=== PATIENT | male | born 1945 | race Caucasian/White ===

== ENCOUNTER 2022-01-30 15:01 | Emergency (ER) | payer MEDICARE ==
[~2022-01-30 15:01] MED LIST: Iopamidol 370 76% 100 ML VIAL ONE
[2022-01-30 15:43] LABS: #Basophils 0.1 10x3/uL (0.0-0.2); #Eosinphils 0.4 10x3/uL (0.0-0.5); #Monocytes 0.6 10x3/uL (0.0-1.1); #Neutrophils 4.6 10x3/uL (1.5-8.4); %Basophils 0.9 % (0.0-2.0); %Eosinophils 5.2 % (0.0-6.0); %Lymphocytes 17.9 % (18.0-47.0); %Monocytes 8.4 % (0.0-10.0); %Neutrophils 66.3 % (40.0-75.0); Hemoglobin 12.1 g/dL (13.5-17.5); Mean Corpuscular HGB CONC 33.5 g/dL (32.0-36.0); Mean Corpuscular Hemoglobin 30.3 pg (27.0-33.0); Mean Corpuscular Volume 90.5 fl (81.2-95.1); Mean Platelet Volume 10.1 fl (7.4-10.4); Platelet Count 282 10x3/uL (150-450); RBC Distribution Width 12.9 % (11.5-14.5); Red Blood Cell (RBC) Count 3.99 10x6/uL (4.32-5.72); White Blood Cell (WBC) Count 6.9 10x3/uL (3.5-10.5)
[2022-01-30 16:00] LABS: ALT (SGPT) 22 U/L (8-55); AST (SGOT) 26 U/L (5-34); Albumin 4.1 g/dL (3.4-4.8); Alkaline Phosphatase 121 U/L (40-110); Anion Gap 14 mmol/L (10-20); BUN (Urea Nitrogen) 24 mg/dL (8.4-25.7); Bilirubin, Total 0.9 mg/dL (0.2-1.2); Calc. Creatinine Clearance 0 mL/min (70-130); Calcium 10.4 mg/dL (7.8-10.44); Carbon Dioxide 25 mmol/L (23-31); Chloride 103 mmol/L (98-107); Estimated GFR 81; Globulin 3.4 g/dL (2.4-3.5); Glucose 104 mg/dL (83-110); Potassium 4.2 mmol/L (3.5-5.1); Protein, Total 7.5 g/dL (5.8-8.1); Sodium 138 mmol/L (136-145)
[2022-01-30 18:01] LABS: Bilirubin 1+ (Negative); Blood, Urine Negative (Negative); Clarity Clear (Clear); Glucose, Urine (Dipstick) Normal (Negative); Ketone, Urine 15 mg/dL (Negative); Leukocyte 25 (Negative); Nitrite Negative (Negative); Protein, Urine (Dipstick) 30 mg/dl (Neg-Trace); Specific Gravity, Urine 1.025 (1.002-1.036)
[2022-01-30 18:16] LABS: Bacteria/HPF None Seen HPF (None Seen); Mucous/LPF 1+ LPF (<2+); RBC/HPF 0-3 HPF (0-3); WBC/HPF 0-3 HPF (0-3)
== END 2022-01-30 20:23 | disposition short-term general hospital (02) ==
LOC: CSHERS 15:01
DX: R55 Syncope and collapse (principal); I25.10 Atherosclerotic heart disease of native coronary artery without angina pectoris; I10 Essential (primary) hypertension; E78.5 Hyperlipidemia, unspecified; I25.2 Old myocardial infarction
CPT/HCPCS: 71045; 71275; 80053; 81003; 81015; 82550; 84484; 85025; 93005; 96360; Q9967